=== PATIENT | male | born 1960 | race Caucasian/White ===

== ENCOUNTER 2017-02-12 08:28 | Inpatient (IN) | payer OTHER ==
[~2017-02-12] VITALS: Ht 172.7 cm; Wt 80.3 kg
[~2017-02-12 08:28] MED LIST: BACTRIM DS TAB1 EACH PO; CEPHALEXIN 500500 M3 PO; CIPROFLOXACIN500 M3; DOXYCYCLINE 10100 MG PO; FLAGYL500 MG; HYDROCODONE-AP1 EAC6 PO; LISINOPRIL10 MG PO; PREDNISONE 10 M10 MG PO; PROTONIX40 M1 PO; PROTONIX40 M2 PO; WORK EXCUSE; ZANTAC 150MG T150 M1 PO
[2017-02-12 09:15] VITALS: BP 101/67
[2017-02-12] MEDS ORDERED: PROZAC20 MG PO (10:01)
[2017-02-12] MEDS ORDERED: FOLIC ACID1 MG PO (10:01)
[2017-02-12] MEDS ORDERED: METHOTREXATE 22.5 M1 PO (10:03)
--- NOTE | 2017-02-12 11:32 | EKG ---
[place] [address] ELECTROCARDIOGRAM REPORT Name: SASHA VENTURA Room: [address] ADM IN .R.#: [id number] Admission: 02/12/17 Attend Phys: Coy Maldonado Discharge: Date of : 60 Report #: [id number] THIS REPORT FOR: //name// [facility] Test Date: 2017-02-12 Test Time: 11:21:34 Pat Name: SASHA VENTURA Department: Room: [address] Gender: M It Application Administrator: 27 : 1960 Requested By: Wayne Alcantar Order Number: [id number] Tiago MD: Anibal Stokes Measurements Intervals [place] Rate: 89 P: 35 GA: 159 QRS: 7 QRSD: 88 T: 42 QT: 361 QTc: 440 Interpretive Statements Sinus rhythm Compared to ECG 06/13/2016 21:05:47 Sinus tachycardia no longer present Electronically Signed On 02-12-2017 11:32:25 E [employer] by Anibal Stokes [email or web address] <ELECTRONICALLY SIGNED> By: Anibal Stokes MD, [facility] 02/12/17 1132 D: [id number] 20 Anibal Stokes MD, FACC /EPI
[2017-02-12 11:34] LABS: HEMATOCRIT 38.6 % (42.0-52.0); HEMOGLOBIN 12.7 gm/dL (14.0-18.0); MCH 29.4 pg (26.0-34.0); MCHC 32.9 g/dL (28.0-37.0); MCV 89.4 fL (80.0-100.0); MPV 7.4 fl. (7.2-11.1); NUCLEATED RBCS 0 /100WBC; PLATELET COUNT* 297 thou/uL (150-400); RBC 4.31 mil/uL (4.50-6.00); RDW-CV 16.1 % (10.5-14.5); WBC 13.9 thou/uL (4.0-11.0)
[2017-02-12 11:42] LABS: CALCIUM 8.7 mg/dL (8.5-10.1); CREATININE 0.7 mg/dL (0.6-1.3); POTASSIUM 3.9 mmol/L (3.5-5.1)
[2017-02-12 11:43] LABS: INR 1.1; PROTIME 10.3 Seconds (9.20-11.50)
[2017-02-12 11:47] LABS: ALBUMIN 3.1 g/dL (3.4-5.0); TOTAL BILIRUBIN 0.7 mg/dL (<0.1-1.0); TOTAL PROTEIN 5.9 g/dL (6.4-8.2)
[2017-02-12 12:14] LABS: ABSOLUTE LYMPHOCYTES 1.3 thou/uL (0.8-5.3); ABSOLUTE MONOCYTES 0.8 thou/uL (0.0-1.2); ABSOLUTE NEUTROPHILS 11.8 thou/uL (1.6-8.1); ANISOCYTOSIS 1+; PLATELET ESTIMATE ADEQUATE
[2017-02-12 12:15] LABS: POIKILOCYTOSIS 1+
[2017-02-12 16:00] VITALS: BP 104/62
[2017-02-12 20:00] VITALS: BP 109/68
[2017-02-13] VITALS (7 sets, daily range): BP systolic 112–130; BP diastolic 70–79
--- NOTE | 2017-02-13 00:25 | CON ---
[address] [address] CONSULTATION Name: SASHA VENTURA Room: [address] IN ..#: [id number] Admission: 02/12/17 Attend Phys: Coy Maldonado Discharge: Date of : 60 Report #: [id number] THIS REPORT FOR: //name// CC: Huy BOGGS physician/PCP Mulugeta Moon DICTATED BY: Sujit Hunter DO DATE OF SERVICE: 02/12/2017 ORTHOPEDIC CONSULTATION REASON FOR CONSULTATION: Right wrist fracture and right tibial plateau fracture. HISTORY OF PRESENT ILLNESS: The patient is a 57-year-old male who fell from his trash truck when he was up on the roof of it, trying to remove some ice. He slipped and fell directly on to the front [facility] with most of the force of the injury directed towards his right wrist as well as right lower extremity. He had immediate pain. He attempted to ambulate following the fall; however, was unable to bear weight and felt instability about his knee. He was then brought to the [facility], where x-rays were taken. He was found to have a distal radius fracture as well as the right lateral tibial plateau fracture. A CT scan was ordered and performed in the ED. He was then directly transferred to [facility] for further evaluation by Orthopedics here. He currently denies any numbness or tingling down into his leg. He denies any pain out of proportion. He had no loss of consciousness with the fall. Currently, he has no other acute complaints. PAST MEDICAL HISTORY: History of kidney stones as well as esophageal dysmotility. PAST SURGICAL HISTORY: 1. Appendectomy. 2. Right knee arthroscopic surgery with ACL reconstruction. 3. Cervical spine surgery. FAMILY HISTORY: Noncontributory. SOCIAL HISTORY: Denies any alcohol or tobacco use. REVIEW OF SYSTEMS: Twelve-point review of systems otherwise negative, except for the above mentioned in the HPI. PHYSICAL EXAMINATION: [place] [address] CONSULTATION Name: SASHA VENTURA Room: [address]#: [id number] Admission: 02/12/17 Attend Phys: Coy Maldonado Discharge: Date of : 60 Report #: [id number] GENERAL: Alert, oriented, no acute distress. HEENT: Normocephalic, atraumatic. Eyes, extraocular motion intact. Ears are grossly normal. Mouth, mucosa moist. NECK: Supple. CARDIOVASCULAR: Cap refill brisk. MUSCULOSKELETAL: Exam of the right lower extremity demonstrates soft compartments throughout the right lower extremity. Plantar flexion, dorsiflexion and EHL are intact. Sensation is intact in the superficial, deep peroneal nerve distributions as well as the tibial nerve distribution. There is no dysesthesias or paresthesias present. No pain with passive range of motion at the ankle or at the toes. There is some generalized ecchymosis throughout his proximal right lower leg. No effusions present on the knee. No pain with gentle hip range of motion. Exam of the right upper extremity demonstrates full excursion of all 5 digits, both actively and passively without pain. FPL and EPL are intact. Sensation is intact distally in the median, radial and ulnar nerve distributions. Cap refill is brisk. He is in a well-padded sugar-tong splint. IMPRESSION: 1. Right lateral split-depression tibial plateau fracture. 2. Right distal radius fracture. PLAN: At this time, we reviewed the x-rays and CT scan with the patient and her family. He did have a lateral tibial plateau fracture that is a split depression with a significant amount of depression that would at some point require definitive fixation in the form of open reduction and internal fixation. However, due to the swelling and soft tissues, we thought it was best to put off surgery. At this point in time, we recommend placing him in a long leg posterior splint to allow for swelling to reside. We will have him to be nonweightbearing and have him rest, ice and elevate this extremity. He will follow up in clinic with Dr. Campos in 1 week, at which time, we will check his skin to see if it is amenable to surgical intervention at that time. In regards to his wrist, we discussed possible operative versus nonoperative management. He is currently in a sugar-tong splint. We will re-x-ray this in 1 week. Should this start to displace, we will consider surgical intervention at that time. However, at this point, radiographic parameters are well within range for nonoperative management. He will also be nonweightbearing with the right upper extremity; however, may bear weight through a platform walker on the right upper extremity through the elbow. All the risks, benefits, complications and indications for the definitive surgery that will take place on his tibial plateau were discussed with the family and Dr. Campos at length. These will be reviewed again in the clinic visit. [address] [address] CONSULTATION Name: SASHA VENTURA Room: [address] IN [facility]#: [id number] Admission: 02/12/17 Attend Phys: Coy Maldonado Discharge: Date of : 60 Report #: [id number] I have personally seen and examined Mr. Ventura. I directly went over the above note and clinical case with Dr. Hunter. I agree with the above note with the following additions. Mr. Ventura was in a knee immobilizer. After examining his compartments and neurovascular exam (found to be soft with no pain with passive stretchn and to be intact), I recommend that he be placed into a well padded posterior splint. We had a long discussion regarding diagnosis. His injury is quite significant for his knee. He has a history of rheumatoid arthritis and does take prednisone. For his plateau, this will require operative fixation, his swelling does not allow for safer surgery at this time and recommend that he follow strict non weight bearing with elevation. In regards to ther surgery I went over with him the risks, complications, benefits, and different treatment options with him regarding operative fixation of his right tibial plateau fracture. The risks of this surgery include, but are not limited too; infection that could require surgical treatment and longterm antibiotics with their sequela (end organ damage, c dificile colitis, resistance, etc.), neurovascular injury that could be permanent and limb/life threatening, continuing of pain, worsening of pain, decreased function compared to preinjury function (this could involve loss of independent ambulation or loss of ability to return to current work environment), wound healing compications and possible need for pastic surgery reconstruction, bleeding and its associated risks, postraumatic arthritis, instability (he recently had ACL reconstruction by Dr. Bourgeois), Nonunion, malunion, failure of bone, failure of implant, intraarticular injury form hardware of cement, neef for further intervention or surgery for any reason (could involve amputation), dvt, pe, mi, stroke, possible , anesthetic related complications that would be addressed by anesthesia team prior to surgery, there is also the possibility of unforeseen complications that would be addressed upon their presentation. These risks were acknolwedged and accepted by him and he does wish to proceed with surgery after I addressed any questions that he and his family members had. Surgery will need to be delayed to allow for soft tissue rest. In regards to his writst. Operative stabilization would allow for earlier range of motion, nonoperative management avoids surgical risks but does carry risk or nonunion, malunion, stiffness and chronic pain and loss of his normal function. For now plan is to keep writst splinted and check xrays in 1 week. My parnter will see him on Sunday and check his swelling, if it is appropriate we will plan for surgery in the near future after that. I have directly contacted my partner and gone over this case with him and have set him up to see him in 1 week. <ELECTRONICALLY SIGNED> By: Doug Campos DO 02/13/17 0025 [id number] [id number] Campos DO /nt
[2017-02-13 03:47] LABS: ABSOLUTE EOSINOPHILS 0.2 thou/uL (0.0-0.7); ABSOLUTE LYMPHOCYTES 1.5 thou/uL (0.8-5.3); ABSOLUTE MONOCYTES 0.7 thou/uL (0.0-1.2); ABSOLUTE NEUTROPHILS 5.3 thou/uL (1.6-8.1); BASOPHILS 0.6 %; EOSINOPHILS 2.1 %; HEMATOCRIT 36.8 % (42.0-52.0); HEMOGLOBIN 12.2 gm/dL (14.0-18.0); LYMPHOCYTES 19.7 %; MCH 29.6 pg (26.0-34.0); MCHC 33.2 g/dL (28.0-37.0); MCV 89.4 fL (80.0-100.0); MONOCYTES 9.2 %; MPV 7.6 fl. (7.2-11.1); NUCLEATED RBCS 0 /100WBC; PLATELET COUNT* 260 thou/uL (150-400); POLYS 68.4 %; RBC 4.12 mil/uL (4.50-6.00); RDW-CV 16.7 % (10.5-14.5); WBC 7.7 thou/uL (4.0-11.0)
[2017-02-13 04:08] LABS: CALCIUM 8.2 mg/dL (8.5-10.1); CREATININE 0.8 mg/dL (0.6-1.3); POTASSIUM 4.1 mmol/L (3.5-5.1)
[2017-02-13] MEDS ORDERED: XARELTO10 MG PO (15:37)
[2017-02-13] MEDS ORDERED: HYDROCODONE-AP1 EAC6 PO (15:38)
[2017-02-14 00:14] VITALS: BP 139/56
[2017-02-14 04:04] VITALS: BP 113/78
[2017-02-14 09:20] VITALS: BP 125/76
[2017-02-14 12:31] VITALS: BP 130/76
[2017-02-14 14:31] VITALS: BP 130/76
== END 2017-02-14 14:15 | disposition home or self-care (01) | DRG 563 ==
LOC: M.ORTHSURG 08:28
PROVIDERS: Internal Medicine; ADMIT Internal Medicine
PROC: 2W0 Placement, Anatomical Regions, Change (ICD-10-PCS; principal; 2017-02-13)
DX: S82.141A Displaced bicondylar fracture of right tibia, initial encounter for closed fracture (principal); R65.10 Systemic inflammatory response syndrome (SIRS) of non-infectious origin without acute organ dysfunction; S52.501A Unspecified fracture of the lower end of right radius, initial encounter for closed fracture; S82.401A Unspecified fracture of shaft of right fibula, initial encounter for closed fracture; M06.9 Rheumatoid arthritis, unspecified; Z90.49 Acquired absence of other specified parts of digestive tract; Z28.21 Immunization not carried out because of patient refusal; V89.2XXA Person injured in unspecified motor-vehicle accident, traffic, initial encounter; Y93.I9 Activity, other involving external motion; Y92.89 Other specified places as the place of occurrence of the external cause; Y99.8 Other external cause status; Z87.442 Personal history of urinary calculi

== ENCOUNTER 2017-02-20 10:11 | Inpatient (IN) | payer OTHER ==
[~2017-02-20] VITALS: Ht 172.7 cm; Wt 86.2 kg
[~2017-02-20 10:11] MED LIST changes: +FOLIC ACID1 MG PO; +METHOTREXATE 22.5 M1 PO; +PROZAC20 MG PO; +XARELTO10 MG PO
[2017-02-20 12:13] VITALS: BP 122/62
[2017-02-20 18:43] VITALS: BP 125/74
--- NOTE | 2017-02-20 18:54 | NUR ---
PATIENT CAME FROM THE OR AT 1843 IN STABLE CONDITION. PAIN IS UNDER CONTROL, PATIENT IS ON 3 LITERS OF OXYGEN WITH CAPNO SATING AT 98%. RIGHT LEG AND WRIST IMMOBILIZED. CALL LIGHT IS IN REACH, AT BEDSIDE WILL CONTINUE TO MONITOR.
[2017-02-20 20:00] VITALS: BP 131/71
[2017-02-21] VITALS: BP 122/78
[2017-02-21 04:28] VITALS: BP 112/75
[2017-02-21 04:51] LABS: HEMATOCRIT 36.3 % (42.0-52.0); HEMOGLOBIN 12.2 gm/dL (14.0-18.0); MCH 30.2 pg (26.0-34.0); MCHC 33.7 g/dL (28.0-37.0); MCV 89.5 fL (80.0-100.0); MPV 7.5 fl. (7.2-11.1); NUCLEATED RBCS 0 /100WBC; PLATELET COUNT* 387 thou/uL (150-400); RBC 4.05 mil/uL (4.50-6.00); RDW-CV 16.2 % (10.5-14.5); WBC 12.9 thou/uL (4.0-11.0)
[2017-02-21 04:57] LABS: CALCIUM 9.1 mg/dL (8.5-10.1); CREATININE 0.9 mg/dL (0.6-1.3); POTASSIUM 4.7 mmol/L (3.5-5.1)
--- NOTE | 2017-02-21 06:39 | NUR ---
Arrived to floor at 1845. Rt arm is in acewrap and has been elevated. RLE is acewrap and splint and is elevated. He was in considerable pain at start of the shift. He did have IV dilaudid x 2, last at 0000. He has had oral pain meds every 2 hours, alternating oxy IR with norco. He started with rating pain 10/10 and it has decreased to 6/10. Denies nausea. IV in left forearm is patent. He's had good urine output. Capno has not went off very frequently, he's sating 97-99% with O2 at 3L n/c. He has slept well.
--- NOTE | 2017-02-21 06:42 | OP ---
[facility] [address] [place] [address] OPERATIVE REPORT Name: SASHA VENTURA Room: [address] IN [facility]#: [id number] Admission: 02/20/17 Attend Phys: Coy Maldonado Discharge: Date of : 60 Report #: [id number] THIS REPORT FOR: //name// CC: JESUS Moon DATE OF SERVICE: 02/20/2017 PREOPERATIVE DIAGNOSIS: Closed extraarticular distal radius fracture, [place] 1. POSTOPERATIVE DIAGNOSIS: Closed extraarticular distal radius fracture, [place] 1. SURGERY PERFORMED: Open reduction internal fixation of the distal radius using a Synthes 2.7 LCP distal radius plate. SURGEON: Huy Sanderson DO. PROGRESS WORKER: Ignacio Arriaza DO. ANESTHESIA: General plus local. ESTIMATED BLOOD LOSS: 10 mL. COMPLICATIONS: None. SPECIMENS: None. DRAINS: None. The patient did receive Ancef 2 grams IV piggyback preoperatively. GROSS FINDINGS AND INDICATIONS FOR SURGERY: This gentleman correlated with a previous work comp injury that he sustained a lateral tibial plateau fracture of his right leg and the distal radius fracture on his right wrist region requiring 2 surgeon technique for fixation to aid in the gentleman be not under as much anesthesia for the surgery. The patient upon findings of radiographs correlate with a closed distal radius fracture as stated above. Intraoperatively, the fracture was manually reduced and post plate fixation demonstrated near anatomic reduction both AP and lateral views. DESCRIPTION OF PROCEDURE: The patient was taken to the operating room and placed on the table and had a well-padded tourniquet [place] [address] OPERATIVE REPORT Name: SASHA VENTURA Radha Room: [address] IN [facility]#: [id number] Admission: 02/20/17 Attend Phys: Coy Maldonado Discharge: Date of : 60 Report #: [id number] extremity. He underwent a chlorhexidine prep and sterile draping for his right arm surgery. At this point in time, after the sterile drape, timeout was called. It was verified for the right arm. I did go ahead and Esmarch the right upper extremity and inflated the tourniquet to 250 mmHg. At this point in time, a volar incision was made with a 15 blade scalpel distally over the flexor carpi radialis extending proximally volar approach of [place]. At this point in time, the flexor tendon was removed to the side and at this point in time, the deep fascia was incised. Pronator was visualized and split off the distal radius at its most medial border and followed it distally. Once this pronator was elevated off, the fracture was easily identified and exposed and it was manually reduced. The Synthes plate was now placed upon the distal and proximal radius aligned with good orientation and secured with K-wires to verify that we were in appropriate position. Once the x-rays correlated with good alignment of the fracture as well as good position of the plate, we fixated the plate using AO technique, both proximally with cortical screws and distally with a 2.7 screws as well. X-rays were taken post-screw placement and 2 screws had removed for a slightly long length and they were replaced with appropriate screws with x-rays now demonstrating excellent alignment of the fracture. All x-rays correlate with no screws within to the joint proper. At this point in time, once we had secure fixation, we copiously irrigated with normal saline. Tourniquet was released. Hemostasis was easily maintained. The incision was closed with 3-0 Monocryl simple inverted fashion and running 3-0 nylon to the skin. Xeroform, 4 x 4, Kerlix, soft roll, volar splint compressive dressing was applied. The patient would be having his leg to fix at the same time. Dr. Campos will be dictating that operative note. The patient had an uneventful surgery on the right distal radius. <ELECTRONICALLY SIGNED> By: Huy Sanderson DO 02/21/17 0642 [id number] [id number] Sanderson DO /radha
[2017-02-21 07:16] LABS: ABSOLUTE MONOCYTES 0.9 thou/uL (0.0-1.2); PLATELET ESTIMATE ADEQUATE
[2017-02-21 08:25] VITALS: BP 115/80
[2017-02-21] MEDS ORDERED: OXYCODONE HCL 55 MG PO (10:18)
[2017-02-21] MEDS ORDERED: HYDROCODONE-AP1 EAC6 PO (10:18)
[2017-02-21] MEDS ORDERED: COLACE100 MG PO (10:19)
[2017-02-21] MEDS ORDERED: ACETAMINOPHEN325 MG PO (10:25)
[2017-02-21] MEDS ORDERED: MAG-AL LIQUID30 ML PO (10:28)
[2017-02-21 10:29] VITALS: BP 115/80
[2017-02-21] MEDS ORDERED: PSYLLIUM HUSK1 GM PO (10:29)
--- NOTE | 2017-02-21 12:00 | NUR ---
PT.TO BE DISCHARGED TODAY TO HOME WITH . HAS PLATFORM WALKER AND WC FROM LAST WEEK [facility]. CM SPOKE WITH WORK COMP VERITO GIORDANO. PT.HAS ORDERS FOR HOME HEALTH PT/OT. VERITO SAID THEY USUALLY USE [facility]. SPOKE WITH JENIFER/[facility]. SHE SAID CM WOULD NEED TO GET IT PRIOR AUTH'D . SPOKE AGAIN WITH VERITO. FAXED HER DISCHARGE ORDERS AND OP REPORT. SHE SAID SHE WOULD CALL [facility] AND AUTHORIZE IT AND HAVE IT SET UP. INFORMED PT.[facility] WOULD CALL HIM TO SET UP APPT. THEY HAVE SOME XARELTO AT HOME FROM LAST WEEK. TOLD THEM IF THEY RUN OUT TO CALL TO SEE HOW MUCH LONGER HE WANTS HIM TO TAKE IT AND MAY HAVE TO CALL IN ANOTHER PRESCRIPTION.
--- NOTE | 2017-02-21 12:38 | NUR ---
ASSUMED CARE OF PATIENT AFTER REPORT THIS MORNING. PATIENT AWAKE, ALERT, AND ORIENTED APPROPRIATELY. PHYSICAL ASSESSMENT COMPLETED AND CHARTED. COMPLAINED OF PAIN. GIVEN PRN AND SCHEDULED MEDICATIONS, SEE EMAR FOR DOCUMENTATION. VITAL SIGNS STABLE. OXYGEN SATURATION WITHIN NORMAL LIMITS ON ROOM AIR. PATIENT TRANSFERS AND AMBULATES WITH ASSISTANCE FROM STAFF, NWB ON RUE AND RLE. PATIENT USES CALL LIGHT APPROPRIATELY. RECEIVED ORDERS TO DISCHARGE PATIENT. DISCHARGE PAPERWORK COMPLETED AND SIGNED BY ALL APPROPRIATE PARTIES, DISCUSSED WITH PATIENT. PRESCRIPTIONS GIVEN WITH EDUCATION. IV DISCONTINUED. PATIENT DISCHARGED AT THIS TIME. ESCORTED TO PARKING LOT BY KOLE BRADSHAW.
--- NOTE | 2017-03-13 14:39 | OP ---
[address] [place] [address] OPERATIVE REPORT Name: SASHA VENTURA Room: [address] IN .R.#: [id number] Admission: 02/20/17 Attend Phys: Coy Maldonado Discharge: 02/21/17 Date of : 60 Report #: [id number] THIS REPORT FOR: //name// CC: JESUS Moon PREOPERATIVE DIAGNOSES: 1. Right tibial plateau fracture, lateral split with intra-articular depression. 2. Right intra-articular distal radius fracture. POSTOPERATIVE DIAGNOSES: 1. Right tibial plateau fracture, lateral split with intra-articular depression. 2. Right intra-articular distal radius fracture. PROCEDURES: 1. Open reduction and internal fixation of right unicondylar intra-articular tibial plateau fracture, lateral split depression with cement augmentation. 2. Open reduction and internal fixation of right intra-articular distal radius fracture, performed by Dr. Huy Sanderson. SURGEON: Doug Campos DO. ADVERTISING SALES MANAGER: London Collins DO. ANESTHESIA: General. ANTIBIOTICS: Weight-appropriate dosing of Ancef IV preoperatively. ESTIMATED BLOOD LOSS: 75 mL. COMPLICATIONS: None. SPECIMENS: None. DRAINS: None. CONDITION OF THE PATIENT: Stable to PACU. TOURNIQUET TIME: 86 minutes at 275 mmHg. IMPLANTS: Synthes variable angle tibial plateau plate with cortical and locking screws with calcium phosphate cement. [address] [place] [address] OPERATIVE REPORT Name: SASHA VENTURA Room: [address] IN ..#: [id number] Admission: 02/20/17 Attend Phys: Coy Maldonado Discharge: 02/21/17 Date of : 60 Report #: [id number] INDICATIONS FOR PROCEDURE: The patient presented to [facility] for operative fixation of his tibial plateau fracture and distal radius fracture. Please note that his distal radius fracture was fixed by my partner, Dr. Huy Sanderson. I had discussed this case personally with Dr. Sanderson and a recommendation was for fixation of his extremity and he aided in regards to fixing the right distal radius so that this would be done under one anesthetic and also decreases his anesthetic time. He fixed the radius concomitantly while I was fixing the plateau. Please see Dr. Sanderson's separate dictation in regards to fixation of the distal radius. In regards to the fixation of his tibial plateau, I not only had a long conversation with the patient and family at his consultation as an inpatient during his initial stay one week ago. In regards to the surgical treatment, I had these conversations with them today as well. His multiple family members were present during both conversations. He saw my partner, Dr. Rodriguez in the clinic on the previous day. Dr. Rodriguez evaluated the swelling and contacted me personally and we went over the case and Dr. Rodriguez felt that his swelling was appropriate to proceed with surgery; and today, we took down his dressings and his compartments were very soft and his swelling was safe to proceed with surgery. After addressing any questions or concerns that he had, he acknowledged and accepted the risks of surgery and we obtained his verbal and written consent. DESCRIPTION OF PROCEDURE: I asked the patient what extremity was correct. He said the right extremity. I marked that extremity in the presence of the preoperative and operative teams; everyone agreed. He was taken to the operative suite, where a briefing was performed. We indicated correct patient, procedure, site, antibiotics and that all implants needed were present and sterile. All team members agreed. General anesthetic was administered and he was transferred on the operative table in a supine position, where he was well padded and well secured. My partner, Dr. Sanderson, prepped his right upper extremity and he performed the surgery in regards to his distal radius. Again, please see his operative report for a full description of the procedure. His right lower extremity had a well-padded tourniquet placed proximally and then was sterilely prepped and draped in a standard fashion. An official timeout was performed indicating correct patient, procedure, site and antibiotics. All team members agreed. We marked out an incision, curvilinear, being centered over Gerdy's tubercle. We Esmarched the extremity and insufflated the tourniquet to 275 mmHg. We began our incision with a 15 blade scalpel through the skin. Soft tissue dissection down the fascial layer and then a second scalpel was then used to incise through the fascia only distally and proximally sharply directly onto Gerdy's tubercle at this area. We then elevated the muscle off of the area distally and stayed extraperiosteal, but submuscularly down along the shaft. We elevated anteriorly and posteriorly off the Gerdy's tubercle. His lateral split was readily identified and we [address] [address] OPERATIVE REPORT Name: SASHA VENTURA Room: M.109-P DIS IN M.R.#: [id number] Admission: 02/20/17 Attend Phys: Coy Maldonado Discharge: 02/21/17 Date of : 60 Report #: [id number] carried this back posteriorly so that we would have adequate access for plate placement and anteriorly so that we can get within the joint and check for fracture reduction. We performed a submeniscal arthrotomy with a separate 15 blade scalpel and we were able to get underneath the meniscus. No evidence of any meniscal tear. We preplaced 0 Vicryl sutures for a horizontal mattress-type closure, tagged these for later repair and used them also for retraction on the meniscus and capsule. We were able to see within the joint quite nicely. We thoroughly irrigated with normal saline to remove any un-evacuated hematoma and blood clot and we could readily identify that his entire lateral plateau was significantly depressed in one major segment posteriorly in the very back, there was slightly comminuted segment. This was able to be tamped up and pinned into position as well. We brought in C-arm imaging confirming that we were in the appropriate position and marked this with a Winner elevator. We then worked through the lateral split. We used an osteotome to free up the depressed segment and we used as much cancellous bone as we could to bring the articular segment up, knowing that this would leave a deficit. We used a combination of curved tamps and osteotome to perform the articular reduction with direct visualization of our articular reduction and using our direct visualization, once we had tamped this up, we then pinned it with 2 K-wires just underneath the articular surface. We then brought in C-arm imaging, confirmed in both AP and lateral images that we had restored articular congruity. Multiplanar images showed that we had restored the convexity of our lateral tibial plateau and our reduction was near anatomic. We had quite a significant bone void. This was anticipated and we had calcium phosphate in the room. We had them throw this on the back table and prepare. We thoroughly irrigated the defect with normal saline 500 mL in total. Once we had thoroughly irrigated, we then prepared the Norian calcium phosphate cement. We then injected the calcium phosphate into the defect. We did this under direct visualization and also confirmed under C-arm that we were placing this putty within the defect and as soon as we fully filled the defect and confirmed that nothing was intra-articular, not only by direct visualization, but also on C-arm, we then closed the split, placed our appropriate-sized tibial plateau plate, pinned it into position both proximally and distally and it was fitting quite nicely. We confirmed on both AP and lateral images the placement was in appropriate position. We first began by sucking the plate down the bone distally along the shaft with a cortical screw. We then used the cortical screw proximally to compress the plate to bone and also reduce our condylar width. We then used the variable angle guide to drill the remaining 3 screws and measured and placed the appropriate-sized locking screws. We then removed the originally placed cortical screw now that the plate was down to bone and we had restored our condylar width and replaced this with the appropriate-sized locking screw. We drilled and placed the kickstand screw in a locking fashion as well. Decision was made to use locking screws proximally as the patient has rheumatoid arthritis and does take steroids as well as medications for his rheumatoid arthritis. We had directly contacted, prior to surgery, his cash manager and gotten him off of these medications. My recommendation is that he stay off of these medications [place] [address] OPERATIVE REPORT Name: LORENZOSASHA MUELLER Room: [address] M.R.#: [id number] Admission: 02/20/17 Attend Phys: Mulugeta Stuartt, D Discharge: 02/21/17 Date of : 60 Report #: [id number] month so that we can decrease his risk of any infectious complications towards a normal baseline. We knew that he will have to get back on those medications and with knowing this, this was why locking screws were chosen. We placed the remaining cortical screws. At this point in time, all hardware was in position. We brought in C-arm imaging and took final multiplanar images to confirm excellent reduction of the fracture and excellent position of all hardware. We saved those images and dismissed the C-arm. Tourniquet was let down and excellent hemostasis obtained, total tourniquet time was 86 minutes We thoroughly irrigated with normal saline in the surgical site; 1000 mL of normal saline was used to irrigate the joint and another 1000 mL of normal saline was used to irrigate throughout the surgical field. The submeniscal arthrotomy was repaired back to the intact capsule distally using a free needle and our previously passed sutures. We then oversewed that with 0 Vicryl [id number] interrupted. We took the knee through range of motion, showing adequate stability of the repair. Our fascial and IT band layer were then closed with 0 Vicryl [id number] interrupted loosely. It did close easily under no undue tension and full coverage over the plate. We irrigated the subcutaneous layer with another 500 mL of normal saline and closed this with 2-0 Monocryl buried deep subcutaneous and a running subcuticular stitch with 3-0 Stratafix. Skin came together very nicely under no undue tension. Prior to the beginning of closure, our initial count was correct. Now that we were fully closed, we performed an operative debriefing procedure and we confirmed the correct procedure as stated. All counts were correct and final. There were no complications and confirmed our blood loss. All team members agreed. Dermabond was applied. Sterile Mepilex AG dressing placed. The patient was successfully extubated, transferred off the operative table and taken to PACU in stable condition. POSTOPERATIVE COURSE AND EVALUATION: I spoke with his family to let them know how he was doing. He gave me permission to do so. I addressed any questions or concerns they had. He is going to be admitted for observation and pain control. He will be on IV and oral with a goal to switching him to oral as soon as possible. DVT prophylaxis will be both pharmacologic and mechanical. Range of motion will begin immediately at his knee. He is in a splint for his wrist. Anticipate that the splint will be kept on for 2 weeks. Once the splint is removed, he will then be placed into a removable brace where he can begin range of motion at that time. Dr. Sanderson performed his procedure; however I will be following him up for postoperative visits and he and family are aware of that. <ELECTRONICALLY SIGNED> By: Doug Cmapos DO 03/13/17 [id number] Campos DO /nt
== END 2017-02-21 12:41 | disposition home health service (06) | DRG 493 ==
LOC: M.PRE 10:11 → M.TBA 11:22 → M.ORTHSURG 11:22 → M.PRE 11:55 → M.ORTHSURG 18:30
PROVIDERS: ADMIT Internal Medicine
PROC: 0PSH04Z Reposition Right Radius with Internal Fixation Device, Open Approach (ICD-10-PCS; principal; 2017-02-20)
PROC: 0QSG04Z Reposition Right Tibia with Internal Fixation Device, Open Approach (ICD-10-PCS; 2017-02-20)
PROC: 0PSH04Z Reposition Right Radius with Internal Fixation Device, Open Approach (ICD-10-PCS; 2017-02-20)
DX: S52.551A Other extraarticular fracture of lower end of right radius, initial encounter for closed fracture (principal); S82.141A Displaced bicondylar fracture of right tibia, initial encounter for closed fracture; S52.571A Other intraarticular fracture of lower end of right radius, initial encounter for closed fracture; I10 Essential (primary) hypertension; K21.9 Gastro-esophageal reflux disease without esophagitis; F32.9 Major depressive disorder, single episode, unspecified; E78.5 Hyperlipidemia, unspecified; M06.9 Rheumatoid arthritis, unspecified; Z90.49 Acquired absence of other specified parts of digestive tract; Z98.1 Arthrodesis status; Z79.899 Other long term (current) drug therapy; Z23 Encounter for immunization; W19.XXXA Unspecified fall, initial encounter; Y93.89 Activity, other specified; Y92.89 Other specified places as the place of occurrence of the external cause; Y99.8 Other external cause status

== ENCOUNTER 2017-02-25 17:45 | Emergency (ER) | payer OTHER ==
[~2017-02-25] VITALS: Ht 172.7 cm; Wt 83.9 kg
[~2017-02-25 17:45] MED LIST changes: +ACETAMINOPHEN325 MG PO; +COLACE100 MG PO; +MAG-AL LIQUID30 ML PO; +OXYCODONE HCL 55 MG PO; +PSYLLIUM HUSK1 GM PO
[2017-02-25] MEDS ORDERED: PERCOCET 5-3251 EACH PO (19:39)
[2017-02-25 19:55] VITALS: BP 132/78
== END 2017-02-25 20:00 | disposition home or self-care (01) ==
LOC: M.ERS 17:45
DX: S86.812A Strain of other muscle(s) and tendon(s) at lower leg level, left leg, initial encounter (principal); M19.90 Unspecified osteoarthritis, unspecified site; K21.9 Gastro-esophageal reflux disease without esophagitis; I10 Essential (primary) hypertension; X58.XXXA Exposure to other specified factors, initial encounter; Y93.89 Activity, other specified; Y92.89 Other specified places as the place of occurrence of the external cause; Y99.8 Other external cause status